=== PATIENT | female | born 1980 | race Caucasian/White ===

== ENCOUNTER 2022-12-18 07:39 | Emergency (ER) | payer OTHER ==
[2022-12-18 07:55] VITALS: BP 118/65; PULSE 71; RESP 18; TEMP 97; BMI 32.9
== END 2022-12-18 14:21 | disposition home or self-care (01) ==
LOC: JER 07:39
PROC: 2W3CX1Z Immobilization of Right Lower Arm using Splint (ICD-10-PCS; principal; 2022-12-18)
DX: S52.251A Displaced comminuted fracture of shaft of ulna, right arm, initial encounter for closed fracture (principal); S52.121A Displaced fracture of head of right radius, initial encounter for closed fracture; S52.352A Displaced comminuted fracture of shaft of radius, left arm, initial encounter for closed fracture; M25.522 Pain in left elbow; M25.532 Pain in left wrist; M25.562 Pain in left knee; W10.8XXA Fall (on) (from) other stairs and steps, initial encounter; Y92.008 Other place in unspecified non-institutional (private) residence as the place of occurrence of the external cause
CPT/HCPCS: 70450-TC; 72125-TC; 73030-TC-LT-FY; 73060-TC-LT-FY; 73070-TC-LT-FY; 73090-TC-LT-FY; 73110-TC-LT-FY; 73130-TC-LT-FY; 73562-TC-LT-FY; 99284-25